=== PATIENT | male | born 1955 | race Caucasian/White ===

== ENCOUNTER 2017-02-24 19:19 | Inpatient (IN) ==
[2017-02-24] MEDS ORDERED: LEVOFLOXACIN INJ 750 MG in PREMIX 1 EACH IV STA (19:37)
[2017-02-24] MEDS ORDERED: KETOROLAC 30 MG/1 ML VIAL IV STA (19:37)
[2017-02-24] MEDS ORDERED: SODIUM CHLORIDE 0.9% 1,000 ML IV STA (19:37)
[2017-02-24] MEDS ORDERED: ONDANSETRON 4 MG/2 ML VIAL IV STA (19:37)
[2017-02-24] MEDS ORDERED: metroNIDAZOLE INJ 500 MG in PREMIX 1 EACH IV STA (19:37)
--- NOTE | 2017-02-24 19:45 | Emergency Department Note ---
Arrival - Arrival Chief Complaint: Abdominal / Flank Pain Stated Complaint: LLQ PAIN/FEVER ED Nursing Triage Note: PT COMPLAINS OF LEFT LOWER QUAD THAT STARTED LAST NIGHT AROUND MIDNIGHT. STATES THAT IT PAIN DOES NOT RADIATE. DESCIRBES PAIN AND SHARP THAT COMES AND GOES. NO URINARY S/S. LAST BM WAS TODAY. STATES THAT HE STARTED RUNNING A FEVER AROUND 1800. STATES THAT IT WAS 99.9 AT LAST CHECK. PT NOTED TO HAVE TEMP OF 99.2 IN TRIAGE. DENIES VOMITING. STATES HE DID HAVE ONE EPISODE OF NAUSEA EARLIER TODAY. Mode of Arrival: Ambulatory Limitations: No Limitations Source: Patient Time Seen by Provider: 02/24/17 19:37 - History of Present Illness HPI Narrative: This 61-year-old white male presents with a history of 24 hours of sharp crampy left lower quadrant pain. The patient denies vomiting, diarrhea, constipation, bright red blood in the bowel movement, or melena, although he does have chills and fever. He likewise has a history on colonoscopy of diverticula, but never has had a flare of diverticulitis. He does have a history of prior renal stone disease but denies this pain being anything similar to that issue. Currently he presents in no acute distress although uncomfortable. Onset (ago): hour(s) (Patient presents 24 hours post onset of symptoms) Allergies/Adverse Reactions: Allergies Allergy/AdvReac Type Severity Reaction Status Date / Time No Known Allergies Allergy Verified 02/24/17 19:20 Home Medications: Home Medications Medication Instructions Recorded Confirmed Type Allopurinol 300 mg PO DAILY 02/24/17 02/24/17 History Aspirin 81 mg PO DAILY 02/24/17 02/24/17 History Review of System - Review of System 12 point system: reviewed and no additional remarkable complaints except as stated - Review of System Constitutional: Present: as per HPI Gastrointestinal: Present: as per HPI Medical,Surgical,& Family Hx - Medical History Rheumatology: History of;: Gout Genitourinary: History of: Kidney Stones Gastrointestinal: History of: GI Problems - Social History Smoking Status: Never smoker Frequency of Alcohol Use: None Type of Drug Use: None Exam Physical Examination: GENERAL: Obese white male in no acute distress. HEENT: Normocephalic. No trauma. Moist mucous membranes. EOMI. PERRLA. ENT NML NECK: Supple. No adenopathy. CARDIAC: Regular. No murmurs. Heart rate 100 CHEST: Clear to auscultation. No respiratory distress. O2 sat 97% ABDOMEN: Soft. Tender left lower quadrant with hypoactive bowel sounds. EXTREMITIES: No trauma. Normal ROM. No pedal edema. SKIN: No diaphoresis. No rash. NEURO: Alert. Neuro intact. No focal deficits. Vital Signs: Vital Signs Temperature 99.2 F 02/24/17 19:19 Pulse Rate 79 02/24/17 21:00 Respiratory Rate 18 02/24/17 21:00 Blood Pressure 135/85 02/24/17 21:00 O2 Sat by Pulse Oximetry 100 02/24/17 21:00 Course - Reevaluation(s) Reevaluation #1: Discussed with patient the results of the studies which would indicate the need for hospitalization for further IV antibiotics. - Consultations Consultation #1: Discussed with hospitalist service who will admit for further evaluation treatment. Results - Labs CBC & BMP: 02/24/17 19:38 02/24/17 19:38 Labs: I have reviewed the laboratory noted the gross normality. - Impressions EKG: Sinus rhythm at 82 with normal SC interval and QRS duration. Normal ST segments. Normal EKG. - Diagnostic Findings Procedure: CT Abdomen and Pelvis: image reviewed by me, report reviewed by me ( Diverticulitis with evidence of pericolonic fluid and soft tissue stranding) Disposition Clinical Impression: Diverticulitis Case discussed with: patient, patient's family Disposition: Still a Patient Condition: Stable Time of Disposition: 22:03
[2017-02-24] MEDS ORDERED: LEVOFLOXACIN INJ 150 ML IV ONE (19:56)
[2017-02-24] MEDS ORDERED: ONDANSETRON 4 MG/2 ML VIAL ONE (19:56)
[2017-02-24] MEDS ORDERED: metroNIDAZOLE 500 MG/100 ML PREMIX IV ONE (19:56)
[2017-02-24] MEDS ORDERED: KETOROLAC 30 MG/1 ML VIAL ONE (19:56)
[2017-02-24 19:57] LABS: Basophils % 0.4 % (0.0-0.8); Eosinophils # 0.1 10*3/uL (0.0-0.87); Eosinophils % 1.9 % (0.00-10.9); Hematocrit 40.8 VOL% (42.0-52.0); Hemoglobin 13.9 GM/DL (14.0-18.0); Immature Granulocytes % 0.1 %; Immature Granulocytes Absolute 0.01 #; Lymphocytes # 1.4 10*3/uL (1.4-4.0); Lymphocytes % 18.9 % (21.2-54.2); Mean Corpuscular HGB Conc 34.1 GM/DL (32-36); Mean Corpuscular Hemoglobin 29 PG (27-34); Mean Corpuscular Volume 86.4 FL (87-102); Monocytes # 0.5 10*3/uL (0.11-0.8); Monocytes % 6.5 % (1.7-12.7); Neutrophils # 5.4 10*3/uL (1.4-7.4); Neutrophils % 72.2 % (38.7-73.9); Platelet Count 179 T/CUMM (130-400); Red Blood Count 4.72 MC/CUMM (3.8-5.5); Red Cell Distribution Width 12.7 % (9.3-17.3); White Blood Count 7.4 T/CUMM (4-12)
--- NOTE | 2017-02-24 20:01 | EKG Report ---
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
[2017-02-24 20:15] LABS: Lactic Acid 0.7 MMOL/L (0.4-2.0)
[2017-02-24 20:17] LABS: Alanine Aminotransferase 19 U/L (16-61); Alkaline Phosphatase 73 U/L (45-117); Amylase 38 U/L (25-115); Aspartate Amino Transferase 14 U/L (0-37); Blood Urea Nitrogen 14 MG/DL (7-18); Calcium 8.6 MG/DL (8.5-10.1); Glucose 91 MG/DL (74-106); Osmolality,Calculated 281.3 MOS/KG (273-304); Potassium 4.1 MMOL/L (3.5-5.1); Sodium 141 MMOL/L (136-145); Total Protein 6.8 G/DL (6.4-8.3); Troponin I Only < 0.015 NG/ML (0.00-0.045)
--- NOTE | 2017-02-24 21:51 | CT Report ---
Referring physician: Emil Izaguirre EXAM: CT abdomen and pelvis with contrast DATE: 02/24/2017 COMPARISON: 07/13/2011 REASON: Diverticulitis TECHNIQUE: Axial images of the abdomen and pelvis were obtained after administration of 100 cc of Omnipaque 350 IV contrast. Oral contrast was also administered. Coronal and sagittal reformatted images were also provided. Total DLP is 2753.1073 mm . mGy*cm. FINDINGS: Stable 2 mm noncalcified pulmonary nodule in the right middle lobe with calcified granulomata and cardiac fat pads. Fatty infiltration of liver which is normal in size with no masses, dilated ducts, or calcified gallstones. The spleen, pancreas, and adrenal glands are stable in appearance. 4.5 mm upper pole and 2 mm mid pole right renal calculi with no ureteral calculi. Tiny renal cysts. Calcification in the wall of the nondilated abdominal aorta with no adjacent adenopathy. Small hiatal hernia. No dilatation of the small bowel. The oral contrast does not reach the colon. Multiple diverticula are noted in the colon with no evidence of appendicitis or free air. Findings consistent with diverticulitis at the junction of the descending colon and upper sigmoid colon. Pericolonic fluid and soft tissue stranding. No obvious abscess cavity is identified at this time. Stretching of the sigmoid colon with increased abdominal fat. The prostate measures 39 mm in diameter and indents the base of the urinary bladder. Minimal bladder wall thickening. Degenerative changes are noted. IMPRESSION: Acute diverticulitis at the junction of descending and upper sigmoid colon. Pericolonic fluid and soft tissue stranding with no free air or definite abscess cavity. Chronic findings at the lung bases with increased fat deposition including fatty infiltration of the liver. Nonobstructing right renal calculi with tiny renal cysts. Nonspecific enlargement of the prostate with associated minimal bladder wall thickening. The CT exam was performed using one or more of the following dose reduction techniques: Automated exposure control and adjustment of the mA and/or kV according to patient size. PROCEDURE INTERPRETED AT [facility] DEPARTMENT OF RADIOLOGY Final Report Signed by: Dr. Lizzy Childs
[2017-02-24] MEDS ORDERED: DOCUSATE SODIUM 100 MG CAPSULE PO PRN (22:18)
--- NOTE | 2017-02-24 22:36 | Hospitalist History & Physical ---
Assessment and Plan (1) Acute diverticulitis Status: Chronic Assessment and plan: Will we will continue antibiotics with Levaquin and Flagyl intravenously. Patient will be on a regular diet unless not able to tolerate. Also will give IV fluids. Follow blood cultures Current Visit: Yes (2) Nephrolithiasis Status: Chronic Assessment and plan: Nonobstructing stone without symptom in the right kidney Current Visit: Yes (3) Sleep apnea Status: Chronic Assessment and plan: Continues home CPAP treatment at hours of sleep Current Visit: Yes (4) Obesity Status: Chronic Assessment and plan: Obesity with a likely associated some fatty liver on CT scan. I will get liver function panel for the morning lab and to be followed by the hospitalist Current Visit: Yes History of Present Illness Chief complaint: Left lower quadrant pain History of present illness: Mr. Hoskins is a 61 year old male with history of sleep apnea gout diverticulosis and kidney stone came to ER with complaint of left lower quadrant pain started last night. He noted fever today and it was 100.9 when he checked to the tympanic membrane. He has no vomiting or diarrhea but reported nauseated earlier today no constipation. He had a last endoscopy 6 years ago. He was evaluated here and noted to have acute diverticulitis at the junction of descending and upper sigmoid colon. There was some pericolonic fluid and soft tissue stranding no free air or abscess was seen. Nonobstructing right kidney calculi and some fatty repeat infiltration of the liver was also seen. Patient has no pain in the right upper quadrant or any pain in the flank area. WBC count is 7.4 hemoglobin 13.9 hematocrit 40.8. BUN 40 creatinine 1.0. He received IV Levaquin and Flagyl in the ER and I was consulted to admit him Home Medications Medication Instructions Recorded Confirmed Type Allopurinol 300 mg PO DAILY 02/24/17 02/24/17 History Aspirin 81 mg PO DAILY 02/24/17 02/24/17 History Allergies Allergy/AdvReac Type Severity Reaction Status Date / Time No Known Allergies Allergy Verified 02/24/17 19:20 Medical,Surgical,& Family Hx - Medical History Rheumatology: History of;: Gout Genitourinary: History of: Kidney Stones Gastrointestinal: History of: GI Problems - Social History Smoking Status: Never smoker Frequency of Alcohol Use: None Type of Drug Use: None Review of systems: A comprehensive review of 12 systems was done and negative unless indicated above in HPI - Constitutional Constitutional: Present: chills, fever(s), lethargy, weight loss Exam - Constitutional Vitals: Period Temp Pulse Resp BP Sys/Little Pulse Ox Last 24 Hr 99.2 F-99.2 F 76-97 18-20 135-191/85-111 97-100 General appearance: no acute distress, morbidly obese - Head Head exam: Present: normal inspection, normocephalic, atraumatic - Eye Eye exam: Present: EOMI. Absent: conjunctival injection Pupils: Present: LIBBY, normal accommodation - Respiratory Respiratory exam: Present: clear to auscultation bilaterally. Absent: accessory muscle use, rales, rhonchi - Cardiovascular Cardiovascular exam: Present: regular rate and rhythm. Absent: tachycardia - GI/Abdominal GI/Abdominal exam: Present: normal bowel sounds, tenderness (Mild tenderness in left lower quadrant without any rigidity or rebound), soft. Absent: distended, rebound - Extremities Exam Extremities exam: Present: normal inspection, edema (Mild edema bilateral lower extremities) - Neurological Exam Neurological exam: Present: alert, oriented X3 Results - Labs CBC & BMP: 02/24/17 19:38 02/24/17 19:38 Lab Results: I have reviewed the past 24 hour labs
[2017-02-24] MEDS: DEXTROSE 5% NACL 0.45% 1,000 ML IV SCH (23:35)
[2017-02-25 01:48] LABS: Basophils % 0.5 % (0.0-0.8); Eosinophils # 0.1 10*3/uL (0.0-0.87); Eosinophils % 1.8 % (0.00-10.9); Hematocrit 36.2 VOL% (42.0-52.0); Hemoglobin 12.4 GM/DL (14.0-18.0); Immature Granulocytes % 0.2 %; Immature Granulocytes Absolute 0.01 #; Lymphocytes # 1.3 10*3/uL (1.4-4.0); Lymphocytes % 22.1 % (21.2-54.2); Mean Corpuscular HGB Conc 34.3 GM/DL (32-36); Mean Corpuscular Hemoglobin 29 PG (27-34); Mean Corpuscular Volume 85.8 FL (87-102); Mean Platelet Volume 10.3 FL (9.6-12.0); Monocytes # 0.4 10*3/uL (0.11-0.8); Monocytes % 7.2 % (1.7-12.7); Neutrophils # 4.1 10*3/uL (1.4-7.4); Neutrophils % 68.2 % (38.7-73.9); Platelet Count 151 T/CUMM (130-400); Red Blood Count 4.22 MC/CUMM (3.8-5.5); Red Cell Distribution Width 12.9 % (9.3-17.3)
[2017-02-25 02:05] LABS: Albumin 3.3 G/DL (3.4-5.0); Bilirubin,Total 1.1 MG/DL (0.2-1.0); Osmolality,Calculated 283.1 MOS/KG (273-304); Potassium 3.7 MMOL/L (3.5-5.1); Total Protein 5.7 G/DL (6.4-8.3)
[2017-02-25 02:08] LABS: Albumin 3.3 G/DL (3.4-5.0); Bilirubin,Direct 0.2 MG/DL (0.0-0.20); Bilirubin,Indirect 1.2 MG/DL (0.0-1.0); Bilirubin,Total 1.4 MG/DL (0.2-1.0); Total Protein 5.8 G/DL (6.4-8.3)
[2017-02-25] MEDS: metroNIDAZOLE INJ 500 MG in PREMIX 1 EACH IV SCH ×3 (04:07→20:52)
[2017-02-25] MEDS: ASPIRIN CHEW 81 MG TABLET PO SCH (09:58)
[2017-02-25] MEDS: ENOXAPARIN 40 MG/0.4 ML SYRINGE SUBCUT SCH (09:58)
[2017-02-25] MEDS: DEXTROSE 5% NACL 0.45% 1,000 ML IV SCH ×2 (09:59→18:40)
[2017-02-25] MEDS: ALLOPURINOL 300 MG TABLET PO SCH (10:02)
--- NOTE | 2017-02-25 11:44 | Hospitalist Progress Note ---
Assessment and Plan - Time spent with patient Time spent with patient: Less than 30 minutes (1) Acute diverticulitis Status: Chronic Assessment and plan: continue IV abx another liter of NS then switch to PO only no IV pain meds anticipate DC in AM Current Visit: Yes (2) Nephrolithiasis Status: Chronic Current Visit: Yes (3) Sleep apnea Status: Chronic Current Visit: Yes Hospitalist: Subjective Interval history: pt doing well had full breakfast no more fevers passing gas no stool asking about DC plan Exam - Constitutional Vitals: Period Temp Pulse Resp BP Sys/Little Pulse Ox Last 24 Hr 97.9 F-98.7 F 67-77 16-20 123-150/61-91 93-100 General appearance: normal weight, no acute distress - Head Head exam: Present: normal inspection, normocephalic, atraumatic - Eye Eye exam: Present: EOMI Pupils: Present: LIBBY - ENT ENT exam: Present: normal exam - Neck Neck exam: Present: normal inspection - Respiratory Respiratory exam: Present: clear to auscultation bilaterally - Cardiovascular Cardiovascular exam: Present: regular rate and rhythm. Absent: irregular rhythm , JVD - GI/Abdominal GI/Abdominal exam: Present: normal bowel sounds. Absent: ascites, distended, guarding, organomegaly - Extremities Exam Extremities exam: Present: normal inspection - Back Exam Back exam: Present: normal inspection - Neurological Exam Neurological exam: Present: alert, oriented X3 - Psychiatric Psychiatric exam: Present: normal affect, normal mood - Skin Skin exam: Present: normal color Results - Labs CBC & BMP: 02/25/17 00:47 02/25/17 00:47
[2017-02-25] MEDS ORDERED: LEVOFLOXACIN INJ 750 MG in PREMIX 1 EACH IV SCH (21:00)
[2017-02-26] MEDS: metroNIDAZOLE INJ 500 MG in PREMIX 1 EACH IV SCH (03:31)
[2017-02-26 07:09] LABS: Calcium 7.9 MG/DL (8.5-10.1); Magnesium 2.2 MG/DL (1.8-2.4); Osmolality,Calculated 284.1 MOS/KG (273-304); Potassium 4.5 MMOL/L (3.5-5.1)
[2017-02-26 08:41] VITALS: BP 121/67
--- NOTE | 2017-02-26 09:19 | Discharge Summary ---
<Silverio Magallanes - Last Filed: 02/26/17 09:20> Hospital Course - Hospital Course Hospital Course: Mr. Hoskins is a 61 yr old male pt that presented to the ED on 02/24 with complaints of LL quadrant pain that started the night before. He had a fever of 100.9 and was nauseous but denied vomiting or diarrhea. Pt. has a hx of sleep apnea, diverticulosis, and kidney stones. In ED patient found to have active diverticulosis. Pt. was admitted for further eval and treatment. Pt was treated with IV fluids and antibiotics (Flagyl and Levaquin). Mr. Hoskins is afebrile now and has improved. Tolerating food intake and has ambulated in ramires. Pt. ready for discharge. Pt. will be released on po Cipro and Kris. to follow. Discharge Plan - Discharge Medications New RX: Ciprofloxacin [Ciprofloxacin Susp] 500 mg PO BID #16 ml metroNIDAZOLE [Metronidazole] 500 mg PO Q8HR #24 tablet Continue RX: Allopurinol 300 mg PO DAILY RX: Aspirin 81 mg PO DAILY RX: Docusate Sodium 100 mg PO DAILY - Follow Up or Referral - Forms/Instructions Exam - Constitutional Vitals: Period Temp Pulse Resp BP Sys/Little Pulse Ox Last 24 Hr 97.8 F-98.5 F 68-75 15-20 111-129/64-72 95-99 Discharge Results Labs on day of discharge: Labs from last 24 hours 02/26/17 06:29 Sodium 142 Potassium 4.5 Chloride 107 Carbon Dioxide 29 Anion Gap 10.5 BUN 16 Creatinine 1.10 GFR Calculation 104 BUN/Creatinine Ratio 14.00 Glucose 115 H Calculated Osmolality 284.1 Calcium 7.9 L Magnesium 2.2 DS: Provider Date of admission: 02/24/17 22:19 Primary care physician: . No PCP Attending physician on admission: Virgilio Mcdaniel MD Discharging clinician: Silverio Magallanes NP <Virgilio Mcdaniel - Last Filed: 02/26/17 09:48> Hospital Course - Hospital Course Hospital Course: Patient seen along with AMALIA Magallanes, agree with hospital course as documented. Will discharge on ciprofloxacin and flagyl. - Time spent with patient Time with patient DS: Less than 30 minutes Diagnosis - Discharge Diagnosis (1) Acute diverticulitis Status: Chronic Discharge Plan - Discharge Data Condition at Discharge: Stable Discharge Diet: advance to your usual diet Activity: increase activity as tolerated Hygiene: no restrictions Weight Bearing at Discharge: weight bear as tolerated Driving: no restrictions Contact your physician if you experience:: fever over 101, Nausea/Vomiting, pain uncontrolled by pain medications Exam - Constitutional General appearance: over weight - Head Head exam: Present: normocephalic, atraumatic - Eye Eye exam: Present: EOMI Pupils: Present: LIBBY - ENT ENT exam: Present: normal exam - Neck Neck exam: Present: normal inspection - Respiratory Respiratory exam: Present: clear to auscultation bilaterally. Absent: rhonchi, wheezes - Cardiovascular Cardiovascular exam: Present: regular rate and rhythm - GI/Abdominal GI/Abdominal exam: Present: normal bowel sounds, soft. Absent: tenderness, rebound - Extremities Exam Extremities exam: Present: normal inspection - Back Exam Back exam: Present: normal inspection - Neurological Exam Neurological exam: Present: alert, oriented X3 - Psychiatric Psychiatric exam: Present: normal affect, normal mood - Skin Skin exam: Present: warm, intact
[2017-02-26] MEDS: ASPIRIN CHEW 81 MG TABLET PO SCH (09:41)
[2017-02-26] MEDS: ENOXAPARIN 40 MG/0.4 ML SYRINGE SUBCUT SCH (09:41)
[2017-02-26] MEDS: ALLOPURINOL 300 MG TABLET PO SCH (09:42)
== END 2017-02-26 11:32 | disposition home or self-care (01) | DRG 392 ==
LOC: N.ED 19:19 → SUATTDRO 22:18 → N.EDINP 22:18 → SUATTDRO 22:19 → N.2E 22:58
PROVIDERS: ADMIT Internal Medicine; ATTEND Internal Medicine